=== PATIENT | female | born 1960 | race African-American/Black ===

== ENCOUNTER 2016-11-08 09:40 | Day surgery (SDC) | payer OTHER ==
--- NOTE | ~2016-11-08 | EGD ---
EGD REPORT [facility] [address] [address] NAME: SKYLAR SPENCER : [birth year] STATUS : REG [facility]#: [id number] AGE: 55 ADM/REG DATE : 11/08/16 MR#: [id number] REPORT SERV DATE: 11/08/16 DICTATED BY: ANTHONY GAO DATE: 11/08/16 REPORT STATUS : Draft TRANSCRIBED BY: [facility] DATE: 11/08/16 Endoscopy Center Patient Name: Skylar Spencer Date of : 1960 Attending MD: ANTHONY GAO MD Procedure Date No Time: 11/08/2016 Procedure: Colonoscopy Indications: High risk colon cancer surveillance: Personal history of colonic polyps Referring MD: RALPH RHODES Medicines: Sedation Required Anesthesia Staff Assistance Complications: No immediate complications. Estimated blood loss: None. Procedure: Pre-Anesthesia Assessment: - ASA Grade Assessment: III - A patient with severe systemic disease. After I obtained informed consent, the scope was passed under direct vision. Throughout the procedure, the patient's blood pressure, pulse, and oxygen saturations were monitored continuously. The PCF [id number] was introduced through the anus and advanced to the terminal ileum, with identification of the appendiceal orifice and IC valve. The colonoscopy was performed without difficulty. The patient tolerated the procedure well. The quality of the bowel preparation was excellent. The ileocecal valve, appendiceal orifice, terminal ileum and rectum were photographed. Findings: The terminal ileum appeared normal. The colon (entire examined portion) appeared normal. Impression: - The examined portion of the ileum was normal. - The entire examined colon is normal. Recommendation: - Continue present medications. - Patient has a contact number available for emergencies. The signs and symptoms of potential delayed complications were discussed with the patient. Return to normal activities tomorrow. Written discharge instructions were provided to the patient. - Return to previous diet daily. - Discharge patient to home. - Repeat colonoscopy in 5 years for surveillance. Procedure Code(s): --- Professional --- EGD REPORT [facility] [address] [place] [address] [place] [address] NAME: SKYLAR SPENCER : [birth year] STATUS : REG [facility]#: [id number] AGE: 55 ADM/REG DATE : 11/08/16 MR#: [id number] REPORT SERV DATE: 11/08/16 DICTATED BY: ANTHONY GAO. DATE: 11/08/16 REPORT STATUS : Draft TRANSCRIBED BY: [place] DATE: 11/08/16 [id number], Colonoscopy, flexible, proximal to splenic flexure; diagnostic, with or without collection of specimen(s) by brushing or washing, with or without colon decompression (separate procedure) Diagnosis Code(s): --- Professional --- Z86.010, Personal history of colonic polyps CPT copyright 2013 [employer]. All rights reserved. The codes documented in this report are preliminary and upon senior copywriter review may be revised to meet current compliance requirements. ANTHONY GAO MD 11/08/2016 12:34 PM This report has been signed electronically. Number of Addenda: 0 Note Initiated On: 11/08/2016 11:37 AM Scope Withdrawal Time 0 hours 7 minutes 37 seconds [address] [facility] [place] [address]
[~2016-11-08 09:40] MED LIST: HCTZ25B PO; NORV5 PO; PRILO PO; PRIN20 PO; VICTOZA18 MG/3 ML SC
== END 2016-11-08 23:59 | disposition home or self-care (01) ==
LOC: DMU 09:40
PROVIDERS: Internal Medicine Gastroenterology
PROC: 0DJD8ZZ Inspection of Lower Intestinal Tract, Via Natural or Artificial Opening Endoscopic (ICD-10-PCS; principal; 2016-11-08 11:30)
DX: Z12.11 Encounter for screening for malignant neoplasm of colon (principal); K21.9 Gastro-esophageal reflux disease without esophagitis; E11.9 Type 2 diabetes mellitus without complications; I10 Essential (primary) hypertension; E78.00 Pure hypercholesterolemia, unspecified; G47.33 Obstructive sleep apnea (adult) (pediatric); M19.90 Unspecified osteoarthritis, unspecified site; M54.9 Dorsalgia, unspecified; Z90.710 Acquired absence of both cervix and uterus; Z90.49 Acquired absence of other specified parts of digestive tract; Z86.010 Personal history of colon polyps; Z98.890 Other specified postprocedural states; Z79.899 Other long term (current) drug therapy
CPT/HCPCS: 82962